=== PATIENT | female | born 1935 | race Caucasian/White ===

== ENCOUNTER 2017-10-14 07:58 | Inpatient (IN) ==
[2017-10-14] MEDS ORDERED: SODIUM CHLORIDE 0.9% 500 ML IV STA (08:18)
[2017-10-14] MEDS ORDERED: KETOROLAC 30 MG/1 ML VIAL ONE (08:39)
[2017-10-14] MEDS ORDERED: KETOROLAC 30 MG/1 ML VIAL IV STA (08:49)
[2017-10-14 08:54] LABS: Basophils # 0.1 10*3/uL (0.0-0.2); Basophils % 0.7 % (0.0-0.8); Eosinophils # 0.1 10*3/uL (0.0-0.87); Eosinophils % 1.2 % (0.00-10.9); Hematocrit 39.9 VOL% (35.7-47.0); Hemoglobin 12.7 GM/DL (12.0-16.0); Immature Granulocytes % 0.4 %; Immature Granulocytes Absolute 0.04 #; Lymphocytes # 2.5 10*3/uL (1.4-4.0); Lymphocytes % 24.1 % (21.3-54.2); Mean Corpuscular HGB Conc 31.8 GM/DL (32-36); Mean Corpuscular Hemoglobin 31 PG (27-34); Mean Corpuscular Volume 98.5 FL (87-102); Monocytes # 0.8 10*3/uL (0.11-0.8); Monocytes % 7.8 % (1.7-12.7); Neutrophils # 6.9 10*3/uL (1.4-7.4); Neutrophils % 65.8 % (38.7-73.9); Platelet Count 221 T/CUMM (130-400); Red Blood Count 4.05 MC/CUMM (3.8-5.5); Red Cell Distribution Width 13.1 % (9.3-17.3); White Blood Count 10.4 T/CUMM (4-12)
[2017-10-14 09:09] LABS: Albumin 3.7 G/DL (3.4-5.0); Bilirubin,Total 0.4 MG/DL (0.2-1.0); Calcium 9.4 MG/DL (8.5-10.1); Osmolality,Calculated 289.4 MOS/KG (273-304); Potassium 4.3 MMOL/L (3.5-5.1); Total Protein 7.2 G/DL (6.4-8.3)
[2017-10-14 09:34] LABS: Apearance,Urine CLEAR (Clear); Bilirubin,Urine Negative (Negative); Blood, Urine Negative (Negative); Glucose,Urine (UA) Negative (Negative); Ketones,Urine Negative (Negative); Nitrite,Urine Negative (Negative); Protein,Urine Negative; RBC,Urine 2 /HPF (0-4); Urine Color Yellow (Yellow); Urine Specific Gravity 1.013 (1.001-1.035); Urine Urobilinogen < 2.0 EU/DL (0.2-1.0); WBC,Urine <1 /HPF (0-6)
[2017-10-14] MEDS ORDERED: ONDANSETRON 4 MG/2 ML VIAL IV PRN (11:40)
[2017-10-14] MEDS ORDERED: ACETAMINOPHEN 325 MG TABLET PO PRN (11:40)
[2017-10-14] MEDS: SODIUM CHLORIDE 0.9% 1,000 ML IV SCH (13:12)
[2017-10-14] MEDS ORDERED: traMADol 50 MG TABLET PO PRN (14:43)
[2017-10-14] MEDS ORDERED: GLUCAGON 1 MG VIAL IM PRN (14:45)
[2017-10-14] MEDS ORDERED: DEXTROSE 50% 25 GM/50 ML VIAL IV PRN (14:45)
[2017-10-14] MEDS ORDERED: LISINOPRIL 5 MG TABLET PO SCH (15:00)
[2017-10-14] MEDS ORDERED: PANTOPRAZOLE 40 MG VIAL IV SCH (15:00)
[2017-10-14] MEDS: amLODIPine 5 MG TABLET PO SCH (15:06)
[2017-10-14] MEDS: ATENOLOL 25 MG TABLET PO SCH (15:06)
[2017-10-14] MEDS: metroNIDAZOLE INJ 500 MG in PREMIX 1 EACH IV SCH ×2 (15:07→22:22)
[2017-10-14] MEDS: CIPROFLOXACIN INJ 400 MG in PREMIX 1 EACH IV SCH (15:07)
[2017-10-14] MEDS: INSULIN REGULAR 100 UNIT/ML SUBCUT SCH (18:12)
[2017-10-14] MEDS: FENOFIBRATE 145 MG TABLET PO SCH (21:44)
[2017-10-14] MEDS: GABAPENTIN 300 MG CAPSULE PO SCH (21:44)
[2017-10-15] MEDS: INSULIN REGULAR 100 UNIT/ML SUBCUT SCH ×4 (00:30→17:11)
[2017-10-15] MEDS: CIPROFLOXACIN INJ 400 MG in PREMIX 1 EACH IV SCH ×2 (03:56→16:48)
[2017-10-15] MEDS: metroNIDAZOLE INJ 500 MG in PREMIX 1 EACH IV SCH ×3 (06:45→22:02)
[2017-10-15] MEDS: LEVOTHYROXINE 50 MCG TABLET PO SCH (06:45)
[2017-10-15 07:08] LABS: Basophils % 0.5 % (0.0-0.8); Eosinophils # 0.2 10*3/uL (0.0-0.87); Eosinophils % 4.3 % (0.00-10.9); Hematocrit 35.4 VOL% (35.7-47.0); Hemoglobin 11.1 GM/DL (12.0-16.0); Immature Granulocytes % 0.5 %; Immature Granulocytes Absolute 0.03 #; Lymphocytes # 2.2 10*3/uL (1.4-4.0); Mean Corpuscular HGB Conc 31.4 GM/DL (32-36); Mean Corpuscular Hemoglobin 31 PG (27-34); Mean Corpuscular Volume 98.9 FL (87-102); Mean Platelet Volume 12.1 FL (9.6-12.0); Monocytes # 0.6 10*3/uL (0.11-0.8); Monocytes % 10.1 % (1.7-12.7); Neutrophils # 2.5 10*3/uL (1.4-7.4); Neutrophils % 44.6 % (38.7-73.9); Platelet Count 206 T/CUMM (130-400); Red Blood Count 3.58 MC/CUMM (3.8-5.5); Red Cell Distribution Width 13.2 % (9.3-17.3); White Blood Count 5.5 T/CUMM (4-12)
[2017-10-15 07:33] LABS: Calcium 8.2 MG/DL (8.5-10.1); Osmolality,Calculated 285.1 MOS/KG (273-304); Potassium 4.4 MMOL/L (3.5-5.1)
[2017-10-15] MEDS: ATENOLOL 25 MG TABLET PO SCH (09:21)
[2017-10-15] MEDS: amLODIPine 5 MG TABLET PO SCH (09:21)
[2017-10-15] MEDS: SIMVASTATIN 40 MG TABLET PO SCH (09:21)
[2017-10-15] MEDS: PANTOPRAZOLE 40 MG TABLET PO SCH (09:22)
[2017-10-15] MEDS: DOCUSATE SODIUM 100 MG CAPSULE PO SCH (09:22)
[2017-10-15] MEDS: MELOXICAM 7.5 MG TABLET PO SCH (09:22)
[2017-10-15] MEDS: SODIUM CHLORIDE 0.9% 1,000 ML IV SCH ×2 (09:22→11:35)
[2017-10-15] MEDS: GABAPENTIN 300 MG CAPSULE PO SCH (22:01)
[2017-10-15] MEDS: FENOFIBRATE 145 MG TABLET PO SCH (22:01)
[2017-10-16] MEDS: INSULIN REGULAR 100 UNIT/ML SUBCUT SCH ×3 (01:55→12:11)
[2017-10-16] MEDS: CIPROFLOXACIN INJ 400 MG in PREMIX 1 EACH IV SCH (03:23)
[2017-10-16] MEDS: SODIUM CHLORIDE 0.9% 1,000 ML IV SCH ×3 (03:26→13:32)
[2017-10-16] MEDS: metroNIDAZOLE INJ 500 MG in PREMIX 1 EACH IV SCH (07:00)
[2017-10-16] MEDS: LEVOTHYROXINE 50 MCG TABLET PO SCH (07:01)
[2017-10-16 07:04] LABS: Basophils % 0.5 % (0.0-0.8); Eosinophils # 0.2 10*3/uL (0.0-0.87); Hematocrit 37.1 VOL% (35.7-47.0); Hemoglobin 11.8 GM/DL (12.0-16.0); Immature Granulocytes % 0.5 %; Immature Granulocytes Absolute 0.03 #; Lymphocytes % 33.7 % (21.3-54.2); Mean Corpuscular HGB Conc 31.8 GM/DL (32-36); Mean Corpuscular Hemoglobin 31 PG (27-34); Mean Corpuscular Volume 97.6 FL (87-102); Mean Platelet Volume 11.6 FL (9.6-12.0); Monocytes # 0.7 10*3/uL (0.11-0.8); Monocytes % 11.9 % (1.7-12.7); Neutrophils % 49.4 % (38.7-73.9); Platelet Count 207 T/CUMM (130-400); Red Cell Distribution Width 13.2 % (9.3-17.3)
[2017-10-16 07:37] LABS: Calcium 8.5 MG/DL (8.5-10.1); Osmolality,Calculated 291.7 MOS/KG (273-304); Potassium 4.9 MMOL/L (3.5-5.1)
[2017-10-16] MEDS ORDERED: metroNIDAZOLE 500 MG TABLET PO SCH (09:00)
[2017-10-16] MEDS ORDERED: CIPROFLOXACIN 500 MG TABLET PO SCH (09:00)
[2017-10-16] MEDS: ATENOLOL 25 MG TABLET PO SCH (09:13)
[2017-10-16] MEDS: MELOXICAM 7.5 MG TABLET PO SCH (09:13)
[2017-10-16] MEDS: PANTOPRAZOLE 40 MG TABLET PO SCH (09:13)
[2017-10-16] MEDS: DOCUSATE SODIUM 100 MG CAPSULE PO SCH (09:13)
[2017-10-16] MEDS: amLODIPine 5 MG TABLET PO SCH (09:14)
[2017-10-16] MEDS: SIMVASTATIN 40 MG TABLET PO SCH (09:14)
[2017-10-16 13:26] VITALS: BP 146/79
== END 2017-10-16 14:29 | disposition home or self-care (01) | DRG 392 ==
LOC: N.ED 07:58 → SUATTDRO 10:14 → N.EDINP 10:14 → N.5E 11:33
PROVIDERS: ADMIT Internal Medicine